=== PATIENT | female | born 1970 | race Caucasian/White ===

== ENCOUNTER 2017-12-13 18:02 | Emergency (ER) | payer BC, OTHER ==
[~2017-12-13] VITALS: Ht 154.9 cm; Wt 57.2 kg
[~2017-12-13 18:02] MED LIST: ROSU20TA PO
--- NOTE | 2017-12-13 18:15 | NUR ---
RECEIVED PT CO OF LT SHOULDER/UPPER BACK PAIN, REALTED TO FALLING DOWN DURING WORK. AWAITING FOR
[2017-12-13] MEDS ORDERED: IBUPROFEN 800 MG TABLET PO ONE (18:45)
--- NOTE | 2017-12-13 18:45 | NUR ---
SEEN BY DR PIERRE, ORDERED FOR MOTRIN 800MG PO STAT FOR PAIN, GIVEN.PT FOR XRAYS, DENIES , SIGNED A WAIVER TO SCREAN FOR AND AGREES FOR XRAY.
[2017-12-13] MEDS ORDERED: IBUPROFEN 800 MG TABLET ONE (18:56)
--- NOTE | 2017-12-13 19:08 | NUR ---
PT SENT FOR CT, REPORT GIVEN TO DALIA BABB
--- NOTE | 2017-12-13 19:11 | NUR ---
RECEIVED REPORT FROM RIKY GÓMEZ. PT AT CT IN WHEELCHAIR WITH TRANSPORTER.
--- NOTE | 2017-12-13 19:20 | NUR ---
PT BACK FROM CT IN WHEELCHAIR WITH TRANSPORTER
--- NOTE | 2017-12-13 19:28 | NUR ---
PT IN BED RESTING QUIETLY. NO SIGNS OF ACUTE DISTRESS WITNESSED AT THIS TIME
--- NOTE | 2017-12-13 19:55 | NUR ---
Patient discharged to home in stable conditon. Written and verbal after care instructions given. Patient verbalizes understanding of instructions. Patient able to ambulate unassisted with steady gait. Patient left with all personal belongings.
[2017-12-13 19:59] VITALS: BP 128/76
== END 2017-12-13 19:55 | disposition home or self-care (01) ==
LOC: ER 18:04
DX: S16.1XXA Strain of muscle, fascia and tendon at neck level, initial encounter (principal); M25.532 Pain in left wrist; E78.00 Pure hypercholesterolemia, unspecified; Z79.899 Other long term (current) drug therapy; W01.0XXA Fall on same level from slipping, tripping and stumbling without subsequent striking against object, initial encounter; Y93.89 Activity, other specified; Y92.89 Other specified places as the place of occurrence of the external cause; Y99.8 Other external cause status
CPT/HCPCS: 72125; 73030; 73110; 99284; A4663

== ENCOUNTER 2019-11-26 20:44 | Emergency (ER) | payer BC, OTHER ==
[~2019-11-26] VITALS: Ht 154.9 cm; Wt 61.7 kg
[~2019-11-26 20:44] MED LIST changes: -ROSU20TA PO; +ROSU20TA2 PO
--- NOTE | 2019-11-26 21:10 | NUR ---
Dr. Cr at bedside for MSE.
--- NOTE | 2019-11-26 21:10 | NUR ---
Patient ambulated self to ER in steady gait. AO x 4, verbally responsive. Per patient, she brought herself to ER for muscle pain/strain in the neck area to the lower legs. Pain is only 3/10 at this time, however during exertion it is 7 to 8/10. Denies chest pain, shortness of breath or other discomfort. No GI/ symptoms. Skin is intact. Pt is placed in bed, and asked to lay in position of comfort. Side rails up x 1, and bed locked in position. Fall and safety precautions maintained.
[2019-11-26 21:30] VITALS: BP 130/90
--- NOTE | 2019-11-26 21:33 | NUR ---
Patient discharged to home in stable condition, proper referrals given by doctor, and explained. Written and verbal after care instructions given. Stressed follow up or return to ER for worsening s/s. 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 Patient verbalizes understanding of instructions. Ambulated out of ER in stable condition in steady gait.
== END 2019-11-26 21:33 | disposition home or self-care (01) ==
LOC: ER 20:51
DX: T14.8XXA Other injury of unspecified body region, initial encounter (principal); M79.10 Myalgia, unspecified site; X58.XXXA Exposure to other specified factors, initial encounter; Y92.89 Other specified places as the place of occurrence of the external cause; E78.00 Pure hypercholesterolemia, unspecified
CPT/HCPCS: A4663

== ENCOUNTER 2020-09-22 15:28 | Emergency (ER) | payer BC, OTHER ==
[~2020-09-22] VITALS: Ht 154.9 cm; Wt 61.2 kg
[2020-09-22] MEDS ORDERED: IBUPROFEN 600 MG TABLET ONE (15:43)
[2020-09-22] MEDS ORDERED: IBUPROFEN 600 MG TABLET PO ONE (15:45)
--- NOTE | 2020-09-22 16:00 | NUR ---
Patient discharged to home in stable condition. Written and verbal after care instructions given. Patient verbalizes understanding of instructions. Stressed follow up or return to ER for worsening s/s.
== END 2020-09-22 16:00 | disposition home or self-care (01) ==
LOC: ER 15:28
DX: S60.221A Contusion of right hand, initial encounter (principal); Y04.2XXA Assault by strike against or bumped into by another person, initial encounter; Y93.F9 Activity, other caregiving; Y92.239 Unspecified place in hospital as the place of occurrence of the external cause; Y99.0 Civilian activity done for income or pay; E78.00 Pure hypercholesterolemia, unspecified
CPT/HCPCS: 73130; A4663

== ENCOUNTER 2022-05-13 11:27 | Outpatient (CLI) | payer BC ==
[2022-05-13 12:59] LABS: *BILIRUBIN,URIN NEGATIVE (NEGATIVE); *CLARITY,URINE CLEAR (CLEAR); *COLOR,URINE YELLOW (YELLOW); *KETONES,URINE NEGATIVE (NEGATIVE); *UROBILINOGEN,URINE 0.2 E.U./dl (NORMAL); LEUKOCYTE ESTERASE ,URINE NEGATIVE (NEGATIVE); NITRITE, URINE NEGATIVE (NEGATIVE); PH,URINE 5.5 (5.0-8.0); UGLUCOSE NEGATIVE (NEGATIVE)
[2022-05-13 13:01] LABS: *BLOOD, URINE TRACE (NEGATIVE)
[2022-05-13 13:08] LABS: HEMATOCRIT 39.8 % (31.2-41.9); MEAN CORPUSCULAR HEMOGLOBIN 31.1 uug (24.7-32.8); MEAN CORPUSCULAR VOLUME 90.4 fL (75.5-95.3); PLATELET COUNT (AUTO) 258 K/uL (179-408)
[2022-05-13 13:09] LABS: BACTERIA,URINE NONE SEEN /HPF (NONE SEEN); RBC,URINE 0-3 /HPF (0-3); SQUAMOUS EPITHELIAL CELL,UR FEW /HPF (NONE SEEN); WBC,URINE 0-3 /HPF (0-3)
[2022-05-13 13:11] LABS: IRON, SERUM 82 ug/dL (50-175)
[2022-05-13 13:22] LABS: ALANINE AMINOTRANSFERASE 119 U/L (14-59); ALKALINE PHOSPHATASE 80 U/L (50-136); ASPARTATE AMINOTRANSFERASE 30 U/L (15-37); BILIRUBIN,TOTAL 0.2 mg/dL (0.2-1.0); CARBON DIOXIDE 26 mmol/L (21-32); CHLORIDE 104 mmol/L (98-107); CHOLESTEROL 277 mg/dL (<200); CREATININE 0.8 mg/dL (0.6-1.3); FERRITIN 212 ng/mL (8-252); GLUCOSE 114 mg/dL (74-106); HDL CHOLESTEROL 35 mg/dL (40-60); POTASSIUM 3.9 mmol/L (3.5-5.1); TOTAL PROTEIN, SERUM 8.1 g/dL (6.4-8.2); TRIGLYCERIDES 327 MG/DL (30-150); UREA NITROGEN, BLOOD 17 mg/dL (7-18)
[2022-05-13 15:43] LABS: THYROID STIMULATING HORMONE 1.191 mIU/mL (0.358-3.740)
[2022-05-14 08:07] LABS: THYROID PEROXIDASE (TPO) AB 12 IU/mL (0-34)
== END 2022-05-13 23:59 | disposition home or self-care (01) ==
LOC: RAD 11:27
PROVIDERS: ATTEND Internal Medicine
DX: M71.21 Synovial cyst of popliteal space [Baker], right knee (principal); R06.02 Shortness of breath; E55.9 Vitamin D deficiency, unspecified; E78.5 Hyperlipidemia, unspecified; H02.60 Xanthelasma of unspecified eye, unspecified eyelid; N64.4 Mastodynia; M25.562 Pain in left knee
CPT/HCPCS: 36415; 71046; 73562; 82306; 83550; 83735; 84443; 84480; 85025; 85651; 86038; 86140

== ENCOUNTER 2022-06-20 09:37 | Outpatient (CLI) | payer BC ==
[2022-06-20 10:03] LABS: MEAN CORPUSCULAR HEMOGLOBIN 30.8 uug (24.7-32.8); MEAN CORPUSCULAR VOLUME 90.6 fL (75.5-95.3); PLATELET COUNT (AUTO) 256 K/uL (179-408)
[2022-06-20 10:24] LABS: BILIRUBIN,DIRECT 0.1 mg/dL (0.0-0.2); BILIRUBIN,TOTAL 0.4 mg/dL (0.2-1.0); POTASSIUM 4.1 mmol/L (3.5-5.1); TOTAL PROTEIN, SERUM 7.8 g/dL (6.4-8.2)
[2022-06-21 07:06] LABS: HEPATITIS B SURFACE AG Negative (Negative)
== END 2022-06-20 23:59 | disposition home or self-care (01) ==
LOC: LAB 09:37
PROVIDERS: ATTEND Internal Medicine
DX: Z11.4 Encounter for screening for human immunodeficiency virus [HIV] (principal); R74.01 Elevation of levels of liver transaminase levels
CPT/HCPCS: 36415; 83615; 85025; 85651; 85730; 86803; 87340; 87806

== ENCOUNTER 2022-10-12 11:50 | Emergency (ER) | payer BC, OTHER ==
[~2022-10-12] VITALS: Ht 154.9 cm; Wt 61.7 kg
[2022-10-12] MEDS ORDERED: IV NORMAL SALINE 1000 ML BAG IV ONE (12:00)
[2022-10-12] MEDS ORDERED: ACETAMINOPHEN ES 500 MG TABLET PO ONE (12:00)
[2022-10-12] MEDS ORDERED: ONDANSETRON 4 MG/2 ML VIAL IV ONE (12:00)
[2022-10-12] MEDS ORDERED: KETOROLAC TROMETHAMINE 15 MG INJ IVP ONE (12:00)
--- NOTE | 2022-10-12 12:01 | NUR ---
seen and examined by MD Cr
--- NOTE | 2022-10-12 12:02 | NUR ---
VSS stable at this time, urine collecting at this time
[2022-10-12] MEDS ORDERED: CEFTRIAXONE /D5W 50ML IVPB **ER PYXIS IV ONE (12:08)
[2022-10-12] MEDS ORDERED: ONDANSETRON 4 MG/2 ML VIAL ONE (12:08)
[2022-10-12] MEDS ORDERED: KETOROLAC TROMETHAMINE 15 MG INJ ONE (12:08)
[2022-10-12] MEDS ORDERED: ACETAMINOPHEN ES 500 MG TABLET ONE (12:08)
[2022-10-12] MEDS ORDERED: CEFTRIAXONE 1 G in IV DEXTROSE 5% 50 ML IV ONE (12:15)
--- NOTE | 2022-10-12 12:22 | NUR ---
CT in process
[2022-10-12 12:23] LABS: *BILIRUBIN,URIN NEGATIVE (NEGATIVE); *BLOOD, URINE 2+ (NEGATIVE); *CLARITY,URINE CLEAR (CLEAR); *COLOR,URINE YELLOW (YELLOW); *KETONES,URINE NEGATIVE (NEGATIVE); *UROBILINOGEN,URINE 0.2 E.U./dl (NORMAL); LEUKOCYTE ESTERASE ,URINE 1+ (NEGATIVE); NITRITE, URINE NEGATIVE (NEGATIVE); UGLUCOSE NEGATIVE (NEGATIVE)
[2022-10-12 12:24] LABS: HEMATOCRIT 37.4 % (31.2-41.9); MEAN CORPUSCULAR HEMOGLOBIN 30.9 uug (24.7-32.8); MEAN CORPUSCULAR VOLUME 90.7 fL (75.5-95.3); PLATELET COUNT (AUTO) 234 K/uL (179-408)
[2022-10-12 12:34] LABS: CREATININE 0.8 mg/dL (0.6-1.3); POTASSIUM 3.6 mmol/L (3.5-5.1)
[2022-10-12 12:40] LABS: BILIRUBIN,DIRECT 0.1 mg/dL (0.0-0.2); BILIRUBIN,TOTAL 0.3 mg/dL (0.2-1.0); TOTAL PROTEIN, SERUM 7.5 g/dL (6.4-8.2)
[2022-10-12] MEDS ORDERED: CEFD300C3 PO (13:50)
--- NOTE | 2022-10-12 14:16 | NUR ---
Dr Franco gave work excuse note until 10/14/22.
[2022-10-12 14:17] VITALS: BP 118/80
[2022-10-12 14:47] LABS: BACTERIA,URINE FEW /HPF (NONE SEEN); SQUAMOUS EPITHELIAL CELL,UR FEW /HPF (NONE SEEN)
== END 2022-10-12 14:18 | disposition home or self-care (01) ==
LOC: ER 11:53
DX: R10.9 Unspecified abdominal pain (principal); R30.0 Dysuria; E78.5 Hyperlipidemia, unspecified
CPT/HCPCS: 99285; 74176; 96365; 96375; 80076; 80048; 81001; 83690; 85025; 36415; 87040; J0696; J1885; J2405; J7040; A4663; A9150

== ENCOUNTER 2023-03-07 19:38 | Emergency (ER) | payer OTHER ==
[~2023-03-07] VITALS: Ht 154.9 cm; Wt 61.7 kg
[~2023-03-07 19:38] MED LIST changes: +CEFD300C3 PO; -ROSU20TA2 PO
[2023-03-07] MEDS ORDERED: ACETAMINOPHEN 325 MG TABLET ONE (19:57)
[2023-03-07] MEDS ORDERED: ACETAMINOPHEN 325 MG TABLET PO ONE (20:00)
[2023-03-07] MEDS ORDERED: NAPR-1009 PO (21:25)
[2023-03-07] MEDS ORDERED: CYCL5TAB PO (21:25)
[2023-03-07 21:36] VITALS: BP 104/70; O2SAT 99
== END 2023-03-07 21:37 | disposition home or self-care (01) ==
LOC: ER 19:52
DX: S20.211A Contusion of right front wall of thorax, initial encounter (principal); M77.8 Other enthesopathies, not elsewhere classified; E78.5 Hyperlipidemia, unspecified; Z79.899 Other long term (current) drug therapy; Y04.2XXA Assault by strike against or bumped into by another person, initial encounter; Y93.89 Activity, other specified; Y92.89 Other specified places as the place of occurrence of the external cause; Y99.8 Other external cause status
CPT/HCPCS: 71101; 73100; A4663